=== PATIENT | female | born 1990 | race Caucasian/White ===

== ENCOUNTER 2016-06-27 19:40 | Emergency (ER) | payer OTHER ==
[~2016-06-27] VITALS: Ht 157.5 cm; Wt 52.3 kg
--- NOTE | 2016-06-27 19:46 | ED.REPORT ---
HPI-Allergic Reaction Date of Service Jun 27, 2016 ED Provider: Raquel Costello MD. 26 year old female with a history of panic attacks, PTSD, anxiety and hypertension presents to the ED complaining of severe anxiety onset yesterday after being released from [facility]. Associated symptoms include blurred vision, palpitations and shortness of breath. She reports accidentally taking a Sudafed instead of a Benadryl today. Nursing Notes Stated Complaint: MEDICATION REACTION Nursing Notes Reviewed: Yes Allergies: Uncoded Allergies: PENICILLIN (Allergy, Severe, throst swells, 06/27/16) General Time Seen by MD: 20:05 Chief Complaint Other (anxiety ) Hx Obtained From: Patient Arrived By: Ambulance Onset Occurred: 1 day ago Symptom Duration: Since onset Recent Healthcare: No recent doctor visit, No recent hospitalization Similar Sx Previous: Yes Past Medical History Past Medical History anxiety panic attacks PTSD Reports: Asthma Past Surgical History none reported Smoking History Unknown if Ever Smoker Social History Drug Use: Meth, THC, Other (amphetamines, ecstasy, opiates, ) Ambulatory Status Independent Review of Systems Constitutional: Denies: Chills, Fever Eyes: Reports: Blurred bilateral Respiratory: Reports: Shortness of breath, Denies: Non-productive cough, Wheezing GI: Denies: Abdominal pain, Nausea, Vomiting Complete sys rev & neg: except as marked. Cardiovascular: Reports: Chest pain, Palpitations Psychiatric: Reports: Agitation, Anxiety Physical Exam Initial Vital Signs Vital Signs (First) Date Time Temp Pulse Resp B/P Pulse Ox O2 Delivery O2 Flow Rate FiO2 06/27/16 19:49 36.2 128 15 153/92 94 Room Air Initial VS: Reviewed General/Constitutional: Awake, Alert, Well developed Behavior: Positive: Agitated, Anxious, Restless, Tearful Respiratory / Chest: Atraumatic, Breath sounds NL, Breath sounds = bilat, No respiratory distress Cardiovascular: Heart sounds NL Heart Rate / Rhythm: Positive: Tachycardia Skin: Atraumatic, Color NL, No rash, Warm, Dry Head / Eyes: Atraumatic, Normocephalic, PERRL, EOMI ENT: Atraumatic, Airway patent, Mucous membranes moist Abdomen: Atraumatic, Soft, Non-tender Neurologic: Oriented X3, Speech NL, No motor deficits, No sensory deficits Neck: Atraumatic, Supple, Full range of motion Back: Atraumatic, Full range of motion Upper Extremity / MS: Atraumatic, Full range of motion Lower Extremity / Pelvis / MS: Atraumatic, Full range of motion negative Abnormal Mood/Affect: Positive: Anxious stigmata of methamphetamine use Interpretation & Diagnostics Lab Results Interpretation Lab Results Interpretation: UA indicates negative Positive for benzodiazepines, THC, methamphetamine, opiates, ecstasy, amphetamines X-Ray Chest Interpretation Chest Xray Interpretation: IMPRESSION: No acute disease Dictated by: Steve Tabares M.D. on 06/27/2016 at 21:06 Approved by: Steve Tabares M.D. on 06/27/2016 at 21:07 View: AP & lat Interpretation / Wet Read by: Interpret - Radiologist Re-Eval/Medical Decision Med Decision/Clinical Course 26-year-old female with past medical history of psychiatric disorder and anxiety here feeling as though she is having a panic attack. Differential diagnosis includes but is not limited to anxiety versus panic attack versus recently released from [facility] versus PE. Patient is extremely tachycardiac. She is also extremely difficult to examine, as she states that I am making her more anxious. Her chest x-ray was unremarkable. I attempted to obtain an EKG on the patient, however, she refused multiple times. When I went in to explain to her why I needed an EKG, she asked if there were any alternatives. I explained to her that there were no alternatives, and she became very verbally abusive, telling me that I was lying to her, requesting an albuterol inhaler, since that would help her chest pain. I have explained to her that she is extremely tachycardic, and not an albuterol inhaler is more dangerous to her condition. She then told me that I was 'a fucking liar' and asked me why I could not just explained to her that her heart rate was high, and still give her an albuterol inhaler. She repeatedly cut me off and would not allow me to explain to her what was actually going on. Initially, she refused to see any other doctors because she did not want to see a male doctor, and then, when she became frustrated with me, she requested to see another doctor. She then asked the room. She has left AGAINST MEDICAL ADVICE. She was of decision-making capacity. She is extremely abusive to me and other ER staff. i have her very strict return precautions Source of Hx: Old records Re-Evaluation/Progress #1: Time of Eval: 20:10 Re-Evaluation/Progress Note: Discussed physical examination and plan to discharge pending further workup. Patient is amenable to the plan. Return precautions given. All other questions addressed. Re-Evaluation/Progress #2: Time of Eval: 21:48 Re-Evaluation/Progress Note: Rechecked patient. Discussed options of leaving against medical of advice or having an EKG. The patient is resisting an EKG and becoming agitated. Counseled Regarding: Diagnosis, Lab results, Need for follow-up, When/why to return to ED Discharge & Departure Primary Impression: Anxiety Disposition: Home Discharge Condition All VS Reviewed: Yes Condition: Stable Patient Instructions: Generalized Anxiety Disorder (DC), Post Traumatic Stress Disorder (DC) Referrals: [facility] Scribe Attestation Portions of this note were transcribed by Anamaria Bentley and Jaret Mckay. I, Dr. Costello personally performed the history, physical exam and medical decision- making; I reviewed and confirmed the accuracy of the information in the transcribed note. Signed by: Gentry Henriquez, 06/27/16 and [id number] copies to: [facility] Raquel Costello MD Jun 27, 2016 19:46 Miladis Bentley Jun 27, 2016 20:12 JARET MCKAY Jun 27, 2016 21:37
[2016-06-27 19:49] VITALS: BP 153/92; PULSE 128; RESP 15; O2SAT 94
[2016-06-27 20:10] VITALS: BP 159/89; PULSE 145; RESP 20; O2SAT 98
[2016-06-27 20:30] VITALS: BP 155/87; PULSE 118; RESP 18; O2SAT 98
--- NOTE | 2016-06-27 21:08 | DRSVH ---
PROCEDURE: X-RAY CHEST, TWO VIEWS ([id number]) INDICATIONS: shortness of breath TECHNIQUE: 2 views of the chest were acquired. COMPARISON: None. FINDINGS: Surgical changes and devices: None. Lungs and pleura: No pleural effusions or pneumothorax. Lungs are clear. Mediastinum: Mediastinal contours are normal. Heart size is normal. Bones and chest wall: No suspicious bony abnormalities. Soft tissues appear unremarkable. IMPRESSION: No acute disease Dictated by: Steve Tabares M.D. on 06/27/2016 at 21:06 Approved by: Steve Tabares M.D. on 06/27/2016 at 21:07
[2016-06-27 21:40] VITALS: BP 155/87; PULSE 120; RESP 22; O2SAT 99
== END 2016-06-27 22:03 | disposition left against medical advice (07) ==
LOC: SED 19:40 → EDBD 19:40 → SED 22:03
DX: F41.9 Anxiety disorder, unspecified (principal); J45.909 Unspecified asthma, uncomplicated; Z88.0 Allergy status to penicillin
CPT/HCPCS: 71020; 81002; 81025; 99283; Q0177